=== PATIENT | male | born 1975 | race Caucasian/White ===

== ENCOUNTER 2016-09-19 03:20 | Observation (INO) ==
[2016-09-19] MEDS ORDERED: SALINE FLUSH 10ml SYRINGE IVF PRN (03:40)
[2016-09-19] MEDS ORDERED: HYDROMORPHONE 2 MG/ML INJECTION IVP ONE ×2 (03:41→05:07)
[2016-09-19] MEDS ORDERED: ONDANSETRON 4 MG/2 ML INJECTION IVP ONE (03:41)
[2016-09-19] MEDS ORDERED: KETOROLAC 30 MG/ML INJECTION IVP ONE (03:41)
[2016-09-19] MEDS ORDERED: NS 1,000 ML IV ONE (03:42)
--- NOTE | 2016-09-19 03:47 | Emergency Department Report ---
Abdominal Pain HPI - General Stated Complaint: lower abd pain Time Seen by Provider: 09/19/16 03:25 Source: patient Mode of arrival: ambulatory Limitations: no limitations - History of Present Illness HPI narrative: Patient has had several hours of low abdominal pain associated with nausea but no vomiting. Patient is restless, and exquisitely tender in the lower abdomen. Patient is an insulin-dependent diabetic normal blood sugars at home complaint: abdominal pain Onset (ago): hour(s) Consistency: constant Location: LLQ, RLQ, suprapubic Quality: stabbing, sharp Migration to: no migration Relieving factors: nothing Exacerbating factors: movement - Related Data Home Medications Medication Instructions Recorded Confirmed Insulin Aspart [NovoLOG] 09/19/16 Allergies Allergy/AdvReac Type Severity Reaction Status Date / Time No Known Allergies Allergy Verified 09/19/16 03:50 Review of Systems All systems: reviewed and negative except as stated Gastrointestinal: Reports: abdominal pain, nausea. Denies: vomiting PFSH IDDM Surgical History: Sinus surgery, neck surgery, wrist surgery - Social History Smoking status: Never smoker second hand exposure: No Substance use type: does not use Alcohol intake frequency: does not drink Physical Exam - Limitations Limitations: no limitations - General General appearance: alert - Normal Exams: Head:: Normocephalic without trauma Eyes:: Pupils are PERRLA w/ EOMI, No scleral icterus, irritation, or foreign bodies noted ENMT:: No facial trauma, nasal exudates, pharyngeal erythema, or exudates are noted Neck:: Full range of motion, without adenopathy, JVD, bruits or thyromegaly Chest/Respirations:: Clear all abreu, with good airflow, and symmetry bilaterally Cardiovascular:: Regular rate and rhythm, without murmur or gallop, Pulses 2+ all extremities, capillary refill, <2 seconds all extremities Lymphatic:: No lymphadenopathy, or lymphedema noted Musculoskeletal:: No tenderness, or deformity noted, good range of motion, all extremities Integumentary:: No rashes, hives, or bruising noted, hair and nails, without abnormality Neurological:: Patient is alert, and oriented, cranial nerves, motor/sensory/ cerebellar, exams w/o gross deficits, to observation Psychiatric:: Patient exhibits, appropriate attention, emotion and affect - Abdominal Exam Abdominal exam: Present: tenderness, guarding, rebound, rigidity, normal bowel sounds, tenderness at McBurney's Point. Absent: distention Abdominal tenderness: Present: RLQ, LLQ, suprapubic Abdominal Pain - MDM Narrative Medical decision making narrative: Patient given 1 L normal saline IV fluid bolus, 1 mg Dilaudid, Toradol, and Zofran for pain and nausea - Symptoms improved and then returned, patient given another 0.5 mg Dilaudid and Compazine 10 mg CBC - n CMP/L -n UA - n CT A/P - n Re-exam - persistent marked right lower quadrant, left lower quadrant tenderness with mild guarding. Case is discussed with Dr. Singh, we'll admit for observation, continued IV fluids and meds, and possible surgical consultation as needed - Lab Data Result diagrams: 09/19/16 03:40 09/19/16 03:40 Disposition Clinical Impression: Abdominal pain Qualifiers: Abdominal location: lower abdomen, unspecified Qualified Code(s): R10.30 - Lower abdominal pain, unspecified Disposition: 02 To [facility] Condition: Improved Prescriptions: No Action Insulin Aspart [NovoLOG] Referrals: KATIUSKA LUNA [Family Provider] - - Seen By: physician
[2016-09-19] MEDS ORDERED: PROCHLORPERAZINE 10 MG/2 ML VIAL IVP ONE ×2 (04:23→05:07)
[2016-09-19] MEDS ORDERED: NS 100 ML ONE (05:20)
[2016-09-19] MEDS ORDERED: SALINE FLUSH 10ml SYRINGE ONE (05:20)
[2016-09-19] MEDS ORDERED: IOHEXOL 300mg/ml 100ml INJECTION ONE (05:20)
[2016-09-19] MEDS ORDERED: HYDROMORPHONE 2 MG/ML INJECTION IVP PRN (07:42)
[2016-09-19] MEDS ORDERED: MORPHINE SULFATE 4 MG SYRINGE IVP PRN (07:42)
[2016-09-19] MEDS: NS 1,000 ML IV SCH ×2 (08:07→18:20)
--- NOTE | 2016-09-19 08:11 | CT Scan Report ---
Indication: RLQ PAIN PROCEDURE: CT abdomen pelvis w con: Encounter: Initial Comparison: None Technique: Axial CT images were performed through the abdomen and pelvis after the administration of intravenous contrast. Coronal and sagittal two-dimensional reformats. Automated Exposure Control and Iterative Reconstruction dose reducing techniques were utilized. Contrast: Omnipaque 300 89 mL Findings: The lung bases are clear. The liver is grossly normal. The gallbladder, spleen, pancreas and adrenal glands are within normal limits. Right renal cyst. Left kidney is normal. No abdominal or pelvic lymphadenopathy. Bladder is normal. Prostate and rectum are normal. No free fluid. No evidence of a bowel obstruction. The appendix is normal. Bone windows show no acute findings. Impression: No acute disease process seen. There is a preliminary report by [facility]. .
--- NOTE | 2016-09-19 08:27 | History & Physical Report ---
<Ban Ferrari - Last Filed: 09/19/16 08:51> History of Present Illness Date: 09/19/16 Chief complaint: Abdominal pain HPI: Rafiq Philip is a 41 y/o male with a hx of well-controlled type 1 DM. He was admitted to observation status under the hospitalist service for intractable vomiting and abdominal pain. He was seen in the ED, where labs, including CBC, CMP, lipase, and UA were unremarkable. CT of abd/pel with contrast was negative for acute findings. Despite IVF, Toradol, Dilaudid, Zofran, and Compazine, however, he still was experiencing pain and vomiting. Rafiq states he woke up with periumbilical pain that went to the right side then felt it in both kidneys around 0030 this morning. Describes the pain as "annoying", constant, yet waxing and waning. It was sharp and at times his describes him as screaming and restless and kicking out in pain, especially in the car ride from [place] to [place]. He had mild nausea at home but didn't vomit until he received pain meds in the ED. No constipation or diarrhea; no bloody stools. No urinary problems or hematuria. He describes a couple episodes of flushing but no fevers per se. He denies any exposures to potentially contaminated foods or ill contacts. His family has been healthy, and have eaten the same meals. His has noticed some twitching in his jaws - she's noticed this before a long time ago, associated with clenching his jaw possibly. She states too that he's been complaining of increased headaches when he gets home from work. Otherwise denies cough, cold, weakness, dizziness, vertigo, rashes, recent travel (see ROS). Reports that he had a somewhat similar event around 1999, when he had hematuria - he was informally dx with kidney stones, but has not had any since then. Review of Systems All systems: reviewed and no additional remarkable complaints except as stated - Constitutional Constitutional: Present: as per HPI, headache(s) - EENMT Nose: Present: as per HPI Mouth/Throat: Present: as per HPI - Cardiovascular Cardiovascular: Absent: chest pain - Respiratory Respiratory: Absent: cough, dyspnea - Gastrointestinal Gastrointestinal: Present: as per HPI - Musculoskeletal Musculoskeletal: Absent: joint swelling - Integumentary/Breasts Integumentary: Absent: rash - Neurological Neurological: Present: as per HPI, headache(s). Absent: dizziness, numbness, vertigo, weakness - Psychiatric Psychiatric: Present: depression (in past - corrects and states it was more of an issue of ocd). Absent: abnormal sleep pattern - Endocrine Endocrine: Present: flushing - Hematologic/Lymphatic Hematologic/Lymphatic: Absent: easy bleeding, easy bruising - Allergic/Immunologic Allergic/Immunologic: Absent: seasonal rhinorrhea PFSH Type 1 DM - dx in 2000 at age 21. Last hgb A1c was a couple months ago and was 6.2%. Surgical History: Sinus surgery, neck fusion C5-C6 (11/2013), wrist surgery for complicated laceration. Insulin pump approx 2008 Family History: Heart disease, high cholesterol, skin cancer M - pacemaker F - epilepsy Twin brother - HTN, overweight Sister - ok Older brother - skin cancer but otherwise healthy (diverticuli) - Social History Smoking status: Never smoker Substance use type: does not use Alcohol intake frequency: holidays/special occasions only Household members: spouse, family, children (3) Current occupational status: employed Current occupation: [email or web address] Medications Home Medications Medication Instructions Recorded Confirmed Type Insulin Aspart [NovoLOG] 22 unit SQ DAILY 09/19/16 09/19/16 History Allergies Allergy/AdvReac Type Severity Reaction Status Date / Time No Known Drug Allergies Allergy Verified 09/19/16 13:55 No Known Adverse Drug AdvReac Verified 09/19/16 13:55 Reactions Exam Vital Signs: Temp Pulse Resp BP Pulse Ox 97.5 F 54 L 16 130/73 94 09/19/16 07:03 09/19/16 07:42 09/19/16 07:42 09/19/16 07:42 09/19/16 07:42 Height: 1.73 m Weight: 73 kg Body Mass Index: 24.5 - Constitutional Present: no acute distress, well nourished, well developed, thin - Routine HEENT Exam Eye: Absent: conjunctival icterus, scleral injection ENT: Present: mucous membranes moist, oropharynx clear Comments: fasciculations in jaw b/l - Routine Neck Exam Present: supple. Absent: lymphadenopathy - Routine Respiratory Exam Present: CTA bilaterally - Routine Cardiovascular Exam Present: RRR, S1, S2, no murmur - Routine Abdominal Exam Present: normoactive bowel sounds, tenderness (equisitely tender to RUQ, RLQ; moderately tender to epigastric area), non distended, guarding (RUQ, RLQ, periumbilical) - Routine Extremities Exam Present: no edema, pulses intact, normal capillary refill - Routine Back/Spine/Pelvis Exam Back/Spine: Present: full ROM. Absent: CVA tenderness - Routine Skin Exam Present: intact, dry, warm - Routine Neurological Exam Present: alert, oriented X3 - Routine Psychiatric Exam Present: normal affect, normal thought process Results - Labs CBC & Chem 7: 09/19/16 03:40 09/19/16 03:40 Assessment and Plan (1) Abdominal pain Current visit: Yes Status: Acute (2) Intractable nausea and vomiting Current visit: Yes Status: Acute (3) Diabetes type 1, controlled Current visit: Yes Status: Acute DVT Prophylaxis: SCD's Resuscitation Status: Full Code Assessment and Plan: Admit to observation status, under the hospitalist service. Dx: Severe abdominal pain with intractable nausea and vomiting - Labs and CT are essentially unremarkable. No SIRS criteria. - Exam is concerning with marked tenderness and guarding to RUQ and RLQ - Consult Dr. Lo - discussed findings with Brian Martínez APRN - Will obtain GB ultrasound as well. - Diet: clears. - IVF: NS at 100 mL/hr. - Dilaudid, Zofran, Reglan PRN Type 1 DM - well controlled, last A1c was 6.2% - sees Dr. Sebastian - has an insulin pump - monitor sugars; pt may help determine insulin dosing based on his personal experience. Discussed with nursing staff and Dr. Nazario. Sepsis Assessment - Evaluation Sepsis screening result: No Definite Risk - Focused Exam Vital Signs Pulse Resp BP Pulse Ox 09/19/16 07:42 54 L 16 130/73 94 Hospital Course Summary Disclaimer: The visit summary below is not to be considered part of the above Progress Note. Hospital Course: 09/19/16 09:09 Admit to observation status, under the hospitalist service. Dx: Severe abdominal pain with intractable nausea and vomiting - Labs and CT are essentially unremarkable. No SIRS criteria. - Exam is concerning with marked tenderness and guarding to RUQ and RLQ - Consult Dr. Lo - discussed findings with Brian Martínez APRN - Will obtain GB ultrasound as well. - Diet: clears. - IVF: NS at 100 mL/hr. - Dilaudid, Zofran, Reglan PRN Type 1 DM - well controlled, last A1c was 6.2% - sees Dr. Sebastian - has an insulin pump - monitor sugars; pt may help determine insulin dosing based on his personal experience. <AravindDoCordero D - Last Filed: 09/19/16 16:01> History of Present Illness Date: 09/19/16 Exam Vital Signs: Temp Pulse Resp BP Pulse Ox 97.5 F 54 L 16 130/73 94 09/19/16 07:03 09/19/16 07:42 09/19/16 07:42 09/19/16 07:42 09/19/16 07:42 Height: 1.73 m Weight: 73 kg Results - Labs CBC & Chem 7: 09/19/16 03:40 09/19/16 03:40 Assessment and Plan (1) Abdominal pain Current visit: Yes Status: Acute (2) Intractable nausea and vomiting Current visit: Yes Status: Acute (3) Diabetes type 1, controlled Current visit: Yes Status: Acute Assessment and Plan: Have independently interviewed and examined pt. Chart reviewed. Case discussed with my CLOTH SHRINKER. Above care plan developed with my supervision; agree with above. CC: Ab pain HPI: 41 y/o male presents to ED with acute onset of ab pain. Occurred this morning. Sudden onset of intense ab pain, located around his belly button and gradually radiated outwards to sides. Bend very bloated. No nause/vomiting/ diarrhea. Stools have been stable. Appetite stable. Not eaten anything out of the ordinary. Not around anyone with GI illness. No f/c. No pain with urination- does report urine dark, but had not had much fluid intake. Not SOA or congested ; ab pain not increasing with breathing. Evaluated in ED. Pain medication helped , but pt became very nauseated. Placed in OBS for further evaluation. Lungs: clear, no crackles/wheezes/distress CV: regular AB: soft, flat, ND. No tenderness or rebound at my interview and examination. BS very decreased, however. EXT: no edema. Neuro: no deficits. MSE: awake alert appropriate. Converses well Plan: OBS. CT ab/pelvis negative. GB sono preformed and negative. IVF for support pain/nausea control. Sx consult secondary to significant pain/guarding. This afternoon, pt doing much better. Pain resolved. No nausea. Able to ambulate well. Taking liquids without problems. Not passing flatus, but not feeling abdominal cramping or bloating. Will advance diet and monitor for change of symptoms. Possible discharge this evening if continues to do well. Sepsis Assessment - Focused Exam Vital Signs Pulse Resp BP Pulse Ox 09/19/16 07:42 54 L 16 130/73 94 Hospital Course Summary Disclaimer: The visit summary below is not to be considered part of the above Progress Note.
[2016-09-19] MEDS ORDERED: ONDANSETRON 4 MG/2 ML INJECTION IVP PRN (08:48)
[2016-09-19] MEDS ORDERED: METOCLOPRAMIDE 10mg/2ml INJECTION IVP PRN (08:49)
--- NOTE | 2016-09-19 09:47 | General Surgery Consult Note ---
Consult date: 09/19/16 Attending Physician: Heidy Singh MD Reason for consult: abdominal pain History of present illness: Per Dr. Lo [facility] DM type 1 well controlled OCD Surgical History: Sinus surgery, neck fusion C5-C6 (11/2013), wrist surgery for complicated laceration. Insulin pump approx 2008 Family History: father- epilepsy mother- pacemaker twin brother - HTN, overweight - Social History Smoking status: Never smoker Household members: spouse Medications Home Medications Medication Instructions Recorded Confirmed Type Insulin Aspart [NovoLOG] 22 unit SQ DAILY 09/19/16 09/19/16 History Allergies Allergy/AdvReac Type Severity Reaction Status Date / Time No Known Allergies Allergy Verified 09/19/16 03:50 Review of Systems 10-point ROS: negative except for HPI and the following: - Gastrointestinal Gastrointestinal: Present: nausea, vomiting, other (see HPI) - Psychiatric Psychiatric: Present: depression ( states related to OCD) - Endocrine Endocrine: Present: diabetes (type 1, well controlled, insulin pump) - Vital Signs Last Vital Signs Temp 97.5 F 09/19/16 07:03 Pulse 54 L 09/19/16 07:42 Resp 16 09/19/16 07:42 BP 130/73 09/19/16 07:42 Pulse Ox 94 09/19/16 07:42 - Laboratory Result Diagrams: 09/19/16 03:40 09/19/16 03:40 (1) Abdominal pain Status: Acute Current visit: Yes Qualifiers: Abdominal location: lower abdomen, unspecified Qualified Code(s): R10.30 - Lower abdominal pain, unspecified (2) Intractable nausea and vomiting Status: Acute Current visit: Yes (3) Diabetes type 1, controlled Status: Acute Current visit: Yes Hospital Course Summary Disclaimer: The visit summary below is not to be considered part of the above Progress Note. Hospital Course: 09/19/16 09:09 Admit to observation status, under the hospitalist service. Dx: Severe abdominal pain with intractable nausea and vomiting - Labs and CT are essentially unremarkable. No SIRS criteria. - Exam is concerning with marked tenderness and guarding to RUQ and RLQ - Consult Dr. Lo - discussed findings with Brian Martínez APRN - Will obtain GB ultrasound as well. - Diet: clears. - IVF: NS at 100 mL/hr. - Dilaudid, Zofran, Reglan PRN Type 1 DM - well controlled, last A1c was 6.2% - sees Dr. Sebastian - has an insulin pump - monitor sugars; pt may help determine insulin dosing based on his personal experience. Sepsis Assessment - Evaluation Sepsis screening result: No Definite Risk - Focused Exam Vital Signs Pulse Resp BP Pulse Ox 09/19/16 07:42 54 L 16 130/73 94 Respiratory exam: Present: CTA bilaterally Cardiovascular exam: Present: RRR, S1, S2, no murmur
--- NOTE | 2016-09-19 10:20 | Ultrasound Report ---
Indication: RUQ guarding PROCEDURE: US gall bladder: Encounter: Initial Comparison: CT abdomen and pelvis dated September 19, 2016 Technique: Grayscale and color Doppler sonographic imaging of the right upper quadrant of the abdomen was performed. Findings: Hepatic parenchyma is homogeneous without evidence for focal mass. The gallbladder is normal. There is no wall thickening, pericholecystic fluid, sonographic Ramirez's sign or cholelithiasis. Both the intra and extrahepatic biliary system are of normal caliber with the common duct measuring 3 mm in dimension. Visualized portions of the head and body of the pancreas are unremarkable. The right kidney is present without collecting system dilatation. The right kidney measures 10.7 cm in length. 1.2 cm right renal cyst. Impression: Negative right upper quadrant sonogram. .
--- NOTE | 2016-09-19 16:01 | Consultation ---
DATE OF CONSULTATION 09/19/2016 FINDINGS Mr. Philip is a 41-year-old gentleman whom I was asked to see as a new patient as a result of his history for abdominal pain earlier this morning. Upon entering his room this afternoon, he was quite conversant and was able to move around without difficulty. The patient upon questioning, states that he was not really experiencing any element of abdominal pain. He states that he did not know if the "pain medicine was still masking his symptoms". The patient states that earlier this morning he was awakened and noted an element of abdominal pain. This pain was located within the periumbilical region. Patient states that the pain was significant enough that he was unable to go back to sleep. Patient states that he then thought perhaps he had have a bowel movement and that this would alleviate his discomfort. Patient states that he got up and tried to go to the bathroom but was unsuccessful. Pain persisted and became more severe in nature. Pain began to spread out further away from his umbilicus. As a result of this increasing pain that was not improving, he presented to our emergency room facility for further evaluation. The patient denies pain similar to this in the past. Patient states that he had another episode of abdominal pain that was completely different in the past. Patient states that he was told that he had perhaps passed a kidney stone in the past. He currently denied any element nausea or vomiting. He also had stated as above , that his abdominal pain had resolved at this time. The patient does have a 13 -year history of insulin dependent diabetes mellitus. The patient states that he has done well with his diabetes. He denied any history for peripheral neuropathy. He denied any type of history for pain or nausea after eating to suggest gastroparesis. PAST MEDICAL HISTORY Performed by my nurse practitioner, Brian Martínez. PAST SURGICAL HISTORY Performed by my nurse practitioner, Brian Martínez. MEDICATIONS Performed by my nurse practitionerBrian. ALLERGIES Performed by my nurse practitionerBrian. SOCIAL HISTORY Performed by my nurse practitionerBrian. FAMILY HISTORY Performed by my nurse practitionerBrian. REVIEW OF SYSTEMS Performed by my nurse practitionerBrian. PHYSICAL EXAMINATION GENERAL: Mr. Philip is a 41-year-old gentleman who did not appear to be in acute distress. VITALS: Temperature 97.5. Pulse 54. Respirations 16. Blood pressure 130/73. SAO2 94% on room air. HEENT: Normocephalic. Pupils are equally round and react to light and accommodation. NECK: Supple without lymphadenopathy. CHEST: Clear to auscultation bilaterally. HEART: Regular rate and rhythm. Normal S1, S2, without gallops, murmurs or clicks. ABDOMEN: Visualization of the abdomen revealed it to be fairly scaphoid in its overall appearance. Palpation of the abdomen throughout did not elicit any tenderness whatsoever to the patient. He did not have any evidence for hepatomegaly or other abnormal masses. EXTREMITIES: Without clubbing, cyanosis, or edema. NEURO: Cranial nerves II-XII grossly intact. Patient without focal, motor, or sensory deficits. LABORATORY/RADIOGRAPHIC EVALUATION The patient had a CBC obtained late last evening. White count was normal at 6.9. Hemoglobin was normal at 16.4. CMP was obtained and found to be essentially within normal limits except his glucose was slightly elevated at 154. Lipase was normal at 28. UA was obtained and found to be within normal limits. Gallbladder ultrasound was obtained for further evaluation of his abdominal pain. Gallbladder ultrasound was normal. There was no evidence for cholelithiasis. No evidence for biliary dilatation. CT scan of his abdomen and pelvis was also obtained for further evaluation of his abdominal pain. CT scan was normal with no acute disease process being noted. ASSESSMENT 41-year-old gentleman with onset of abdominal pain of uncertain etiology that has now completely resolved. Patient without surgical abdomen. Patient with normal radiographic and laboratory evaluation. PLAN Given the resolution of his symptomatology and the lack of findings upon physical examination, laboratory evaluation, and radiographic evaluation, it would be my recommendation that we go ahead and advance the patient's diet as tolerated. I do not feel that we need to proceed with invasive testing such as colonoscopy or EGD at this point in time. I would recommend that we simply follow the patient from a clinical standpoint. If he would begin to have recurrence of his symptoms in the future, then one may wish at that time to proceed with endoscopic evaluation and further evaluation. The above plan/ algorithm was discussed with the patient. He understood and agreed. We will go ahead and advance his diet as tolerated. If he does tolerate a regular diet , I do believe he could be discharged thereafter. [facility]
--- NOTE | 2016-09-19 18:26 | Discharge Summary ---
Discharge Information Date of admission: 09/19/16 07:15 Anticipated date of discharge: 09/19/16 Attending Physician: Gil Nazario MD Primary care physician: KATIUSKA LUNA Consults: 09/19/16 08:47 Physician Consult [CONS] Routine Consulting Provider: Silvestre Lo Reason For Exam: ruq, rlq pain with guarding Ordering Provider has Notified Cns: Yes - Discharge Diagnosis (1) Abdominal pain Qualifiers: Abdominal location: lower abdomen, unspecified Qualified Code(s): R10.30 - Lower abdominal pain, unspecified Status: Resolved (2) Intractable nausea and vomiting Status: Resolved (3) Diabetes type 1, controlled Qualifiers: Diabetes mellitus complication status: without complication Qualified Code( s): E10.9 - Type 1 diabetes mellitus without complications Status: Chronic History of Present Illness HPI: Rafiq Philip is a 41 y/o male with a hx of well-controlled type 1 DM. He was admitted to observation status under the hospitalist service for intractable vomiting and abdominal pain. He was seen in the ED, where labs, including CBC, CMP, lipase, and UA were unremarkable. CT of abd/pel with contrast was negative for acute findings. Despite IVF, Toradol, Dilaudid, Zofran, and Compazine, however, he still was experiencing pain and vomiting. Rafiq states he woke up with periumbilical pain that went to the right side then felt it in both kidneys around 0030 this morning. Describes the pain as "annoying", constant, yet waxing and waning. It was sharp and at times his describes him as screaming and restless and kicking out in pain, especially in the car ride from [employer] [employer] to [place]. He had mild nausea at home but didn't vomit until he received pain meds in the ED. No constipation or diarrhea; no bloody stools. No urinary problems or hematuria. He describes a couple episodes of flushing but no fevers per se. He denies any exposures to potentially contaminated foods or ill contacts. His family has been healthy, and have eaten the same meals. His has noticed some twitching in his jaws - she's noticed this before a long time ago, associated with clenching his jaw possibly. She states too that he's been complaining of increased headaches when he gets home from work. Otherwise denies cough, cold, weakness, dizziness, vertigo, rashes, recent travel (see ROS). Reports that he had a somewhat similar event around 1999, when he had hematuria - he was informally dx with kidney stones, but has not had any since then. For Complete details of the H&P please refer to that document. Hospital Course Hospital course: 09/19/16 09:09 Admit to observation status, under the hospitalist service. Dx: Severe abdominal pain with intractable nausea and vomiting - Labs and CT are essentially unremarkable. No SIRS criteria. - Exam is concerning with marked tenderness and guarding to RUQ and RLQ - Consult Dr. Lo - discussed findings with Brian Martínez APRN - Will obtain GB ultrasound as well. - Diet: clears. - IVF: NS at 100 mL/hr. - Dilaudid, Zofran, Reglan PRN Type 1 DM - well controlled, last A1c was 6.2% - sees Dr. Sebastian - has an insulin pump - monitor sugars; pt may help determine insulin dosing based on his personal experience. CT ab/pelvis negative. GB sono preformed and negative. Sx consult secondary to significant pain/guarding. Evaluated pt. Pain and nausea improved. No indication for surgical intervention. Recommends advancing diet and monitoring symptoms. 1814 Diet advanced and well tolerated. No pain or nausea. Ambulating well. Discussed about discharge to home and pt feels agreeable. Will d/c to home in stable condition. F/U with PCP in 1 week. See orders for details. Narrative disclaimer: above narrative is a brief summary of patient's hospitalization; for complete details of the hospital course, refer to the medical record. DVT Prophylaxis: SCD's Discharge Plan - Med Rec/Dispo Referrals/Follow Up: KATIUSKA LUNA [Family Provider] - 1 Week Prescriptions: Continue Insulin Aspart [NovoLOG] 22 unit SQ DAILY - Disposition 01 Discharged Home, Self-Care
== END 2016-09-19 18:45 | disposition home or self-care (01) ==
LOC: ED 03:20 → MED 03:20
PROVIDERS: ADMIT Internal Medicine; ATTEND Hospitalist